=== PATIENT | female | born 1935 | race African-American/Black ===

== ENCOUNTER 2016-10-19 08:49 | Inpatient (IN) ==
[2016-10-19 09:37] LABS: MANUAL DIFF NEEDED? NO
[2016-10-19 09:41] LABS: BASO% 0.2 % (0.0-0.8); EOS# 0.11 X1000 (0.0-0.7); EOS% 0.9 % (0.0-10.0); HEMATOCRIT 43.2 % (37.0-47.0); HEMOGLOBIN 14.2 g/dL (12.0-16.0); LYMPH% 12.4 % (20.5-51.1); MCH 31.1 PG (27-31); MCHC 32.9 g/dL (33-37); MCV 94.5 FL (81-99); MONO# 0.87 X1000 (0.11-0.59); MONO% 7.2 % (1.7-9.3); MPV 9.7 FL (7.4-10.4); NEUT% 79.3 % (42.2-75.2); PLT 453 X1000 (130-400); RBC 4.57 XMIL (4.2-5.4)
--- NOTE | 2016-10-19 09:53 | Diag Imaging Result Doc PS360 ---
KUB ABDOMEN - 10/19/2016 INDICATION: abd pain TECHNIQUE: COMPARISON: None FINDINGS: There is a nonobstructive bowel gas pattern. No free air. There are bilateral prosthetic hips in good position. There is also extensive fusion of the lumbar spine. No definite acute bony lesions. IMPRESSION: No acute disease. Electronically signed by Shan Reyes 10/19/2016 9:51 AM
[2016-10-19 09:58] LABS: URINE SOURCE CATH
[2016-10-19 10:01] LABS: ALBUMIN 4.2 g/dL (3.5-5.0); POTASSIUM 4.4 mmol/L (3.5-5.1); TOTAL BILIRUBIN 0.33 mg/dL (0.20-1.00); TOTAL PROTEIN 7.8 g/dL (6.3-8.3)
[2016-10-19 10:19] LABS: COLOR YELLOW
[2016-10-19 10:20] LABS: TURBIDITY URINE CLEAR (CLEAR)
[2016-10-19 10:23] LABS: BILIRUBIN URINE NEGATIVE (NEGATIVE); BLOOD URINE SMALL (NEGATIVE); PROTEIN URINE 300 mg/dL (NEGATIVE); UROBILINOGEN URINE NORMAL (NORMAL)
[2016-10-19 10:24] LABS: GLUCOSE URINE 300 mg/dL (NEGATIVE); LEUKOCYTES URINE TRACE (NEGATIVE); NITRITE URINE NEGATIVE (NEGATIVE)
[2016-10-19 10:25] LABS: UR EPITHELIAL CELLS <10 /HPF (<10); URINE BACTERIA NEGATIVE /HPF; URINE MICRO REVIEW NEEDED? YES; URINE RBC <10 /HPF (<10); URINE WBC <10 /HPF (<10)
[2016-10-19] MEDS ORDERED: PROTONIX IV ONE (10:55)
[2016-10-19] MEDS ORDERED: SODIUM CHLORIDE 0.9% INJ ONE ×2 (10:55)
[2016-10-19] MEDS ORDERED: PHENERGAN IV ONE (10:55)
--- NOTE | 2016-10-19 11:04 | PROVIDER DOCUMENTATION ---
This chart was entered by Libertad Edgar Scribe, acting as scribe for Luiz Sheikh MD. HPI-Abdominal Pain/GI Problem - General Chief Complaint: Abdominal Pain Stated Complaint: ABDOMINAL PAIN,VOMITING Time Seen by Provider: 10/19/16 09:15 Source: patient, family Allergies/Adverse Reactions: Patient Allergies Allergy/AdvReac Type Severity Reaction Status Date / Time Penicillins Allergy Severe "[facility]16 09[facility]12 [facility] Home Medications: Home Medication List Medication Instructions Recorded Confirmed Last Taken Type Clopidogrel [Plavix] 75 mg PO DAILY 10/16/14 10/19/16 09/03/16 History Furosemide 80 mg PO QAM 10/16/14 10/19/16 09/03/16 History Hydralazine [Apresoline] 50 mg PO DAILY 10/16/14 10/19/16 09/03/16 History Insulin Glulisine [Apidra Solostar] 15 unit SQ DIRECTED 10/16/14 10/19/1609/14 History Levothyroxine [Synthroid] 50 microgm PO DAILY 10/16/14 10/19/16 09/03/16 History Omeprazole 40 mg PO DAILY 10/16/14 10/19/16 10/18/16 19:00 History SIMVAstatin [Zocor] 20 mg PO QHS 10/16/14 10/19/16 09/03/16 History Clonidine [Catapres] 0.3 mg PO DAILY 09/01/16 10/19/16 09/03/16 History Folic Acid/Vit Bcomp,C [Dialyvite 1 each PO DAILY 09/01/16 10/19/16 09/03/16 History Tablet] Gabapentin 300 mg PO DAILY 09/01/16 10/19/16 09/03/16 History - History of Present Illness-ABD Nature of Presenting Problems: Pt presents to the ER with complaint of mild epigastric pain with n/v x 3 days. Pt is currently on dialysis but missed her scheduled tx yesterday due to n/v. Pt denies diarrhea/fever/chills. Has been on zofran with no relief. Had a normal BM this am. Has had PUD in the past. Does make some urine but no complications, dysuria nor flank pain. Abdominal Pain Onset Location: reports: epigastric Pain Radiation: reports: no radiation Quality of Pain: reports: aching, dull Severity in ED: reports: mild Onset/Duration: reports: 3 days ago Timing: reports: still present Associated Symptoms: reports: loss of appetite, nausea, vomiting. denies: cough , diarrhea, fever/chills, genitourinary problems Last BM: this morning Dark Stools Present?: reports: none noticed Rectal Bleeding: reports: none Emesis Description: denies: red blood, coffee grounds Similar Symptoms Previously?: Yes Recently seen or treated by another doctor?: Yes Review of Systems - Adult - REVIEW OF SYSTEMS - ADULT Constitutional: denies: chills, fever Eyes: reports: no symptoms reported Ears, Nose, Mouth & Throat: reports: no symptoms reported Cardiovascular: reports: no symptoms reported Respiratory: denies: cough, shortness of breath Gastrointestinal: reports: nausea, poor appetite, vomiting Genitourinary: reports: other (on dialysis but does make urine). denies: dysuria, hematuria Musculoskeletal: reports: no symptoms reported Integumentary: reports: no symptoms reported Neurological: reports: no symptoms reported Psychiatric: reports: no symptoms reported Endocrine: reports: no symptoms reported Hematologic/Lymphatic: reports: no symptoms reported Allergic/Immunologic: reports: no symptoms reported All Other Systems: Reviewed and Negative Past History - Adult - PAST MEDICAL HISTORY-ADULT Review of Records: reports: Nursing Assessment Review, Medications Reviewed Cardiovascular: reports: HTN, hyperlipidemia, PAD Gastrointestinal: reports: GERD, ulcer Genitourinary: reports: dialysis (MWF), kidney disease Neurological: reports: Seizures/Epilepsy, TIA Endocrine/Immune: reports: Diabetes, thyroid disorder - PRIOR SURGERIES/PROCEDURES Surgical/Procedure History: reports: hysterectomy, orthopedic (extremity) ( right AKA), joint replacement - IMMUNIZATION STATUS Childhood Immunizations: See Nurse Assessment Flu Vaccine: See Nurse Assessment - FAMILY HISTORY Family History: reviewed, not pertinent Physical Exam-General - PHYSICAL EXAM-ADULT Initial Vital Signs Reviewed: Yes - CONSTITUTIONAL General Appearance: appears well, alert, no apparent distress - EYES Eyes: PERRL/EOMI, pink conjunctivae. negative: sunken eyes - HEAD, EARS, NOSE, MOUTH & THROAT HENMT: normocephalic/atraumatic, other (tacky MM's) - NECK Neck: non-tender, full range of motion, other (JVD) - RESPIRATORY Respiratory: chest non-tender, lungs clear, normal breath sounds. negative: rales, rhonchi - CARDIOVASCULAR Cardiovascular: normal peripheral pulses, regular rate, rhythm, no gallop, JVD, diastolic murmur, systolic murmur. negative: gallop/S3 - GASTROINTESTINAL (ABDOMEN) Abdominal Exam: soft, no organomegaly - LYMPHATIC Lymphatic: no adenopathy. negative: striations - MUSCULOSKELETAL Back Exam: normal inspection, no CVA tenderness, no vertebral tenderness Extremity: normal range of motion, non-tender - SKIN Integumentary: normal color, normal turgor, warm/dry - NEUROLOGIC Neurologic: grossly normal - PSYCHIATRIC Psych/Mental Status: normal mood/affect Progress - PLAN OF CARE/RESULTS Progress/Plan/Lab Results: Vital Signs - 8 hr 10/19/16 08:52 Temperature 98.9 F Pulse Rate 112 H Respiratory Rate 20 Blood Pressure 223/99 O2 Sat by Pulse Oximetry 97 Laboratory Results - last 24 hr 10/19/16 09:31 WBC 12.14 H RBC 4.57 Hgb 14.2 Hct 43.2 MCV 94.5 MCH 31.1 H MCHC 32.9 L RDW Std Deviation 16.4 H Plt Count 453 H MPV 9.7 Immature Gran % (Auto) 0.0 Neut % (Auto) 79.3 H Lymph % (Auto) 12.4 L Hartley % (Auto) 7.2 Eos % (Auto) 0.9 Baso % (Auto) 0.2 Immature Gran # (Auto) 0.00 Neut # (Auto) 9.64 H Lymph # (Auto) 1.50 Hartley # (Auto) 0.87 H Eos # (Auto) 0.11 Baso # (Auto) 0.02 Orders Category Date Time Status KUB ABDOMEN [RAD] Stat Exams 10/19/16 09:29 Taken AMYLASE [CHEM] Stat Lab 10/19/16 09:31 Received CBC WITH ELECTRONIC DIFF [HEME] Stat Lab 10/19/16 09:31 Completed COMPREHENSIVE METABOLIC PANEL [CHEM] Stat Lab 10/19/16 09:31 Received LIPASE [CHEM] Stat Lab 10/19/16 09:31 Received URINALYSIS-1 [URINALYSIS] Stat Lab 10/19/16 09:47 Ordered Result Diagrams: 10/19/16 09:31 10/19/16 09:31 - XRAY 1 XRAY Study: Abdomen Impression: Normal (normal bowel gas pattern, no obstruction) - CONSULTS/PCP/HOSPITALIST Notification #1 *Consult/PCP/Hospitalist*: Amira Time Discussed: 10:36 Consult Disposition: Admit Departure - Departure Date of Disposition Decision: 10/19/16 Time of Disposition Decision: 11:00 DIAGNOSIS: AGE (acute gastroenteritis) Disposition: ADMITTED INPATIENT 09 Certified Medical Emergency: Emergent Condition: Good Referrals and Follow-Ups: Greg Zarate MD [Primary Care Provider] - - Critical Care Note This patient required my direct & personal management of CC.: No This chart was documented by the indicated scribe, (Libertad Edagr, Scribe) and accurately reflects the services I performed and decisions made by me, Luiz Sheikh MD, as attested by the provider's signature.
[2016-10-19] MEDS ORDERED: NS 1,000 ML IV ONE (12:44)
[2016-10-19] MEDS ORDERED: HEPARIN IV PRN (13:14)
[2016-10-19] MEDS ORDERED: NS 2,000 ML MISC PRN (13:14)
[2016-10-19] MEDS ORDERED: TIGHT: 0.2 ML/HR MISC PRN (13:14)
[2016-10-19] MEDS ORDERED: NS 2,000 ML ONE (13:18)
[2016-10-19] MEDS ORDERED: HEPARIN ONE (13:18)
--- NOTE | 2016-10-19 15:33 | HISTORY AND PHYSICAL ---
CHIEF COMPLAINT: Nausea and vomiting. HISTORY OF PRESENT ILLNESS: The patient is an 81-year-old black female, followed by Dr. Michelle Zarate and Dr. Gurvinder Aguayo. She was unable to attend her routine hemodialysis yesterday as she was too sick. She has had nausea and vomiting for about 3 days. Not able to the eat or drink well. She has had no diarrhea. Some pain in the epigastric right upper quadrant area. MEDICATIONS: Prior to admission are Zocor 20 mg p.o. at bedtime, omeprazole 40 mg p.o. daily, Synthroid 50 mcg p.o. daily, Apresoline 50 mg p.o. daily, Lasix 80 mg p.o. q.a.m., Plavix 75 mg p.o. daily, Apidra 15 units subcutaneous daily, Catapres 0.3 mg p.o. daily, Dialyvite tablet 1 p.o. daily, Neurontin 300 mg p.o. daily. ALLERGIES: Penicillin. PAST MEDICAL HISTORY: 1. ESRD on hemodialysis on Friday, Wednesdays, and Fridays. 2. Hypertension. 3. History of peptic ulcer disease remote with remote EGD. 4. Insulin-requiring diabetes mellitus. 5. Peripheral arterial disease. 6. Hypothyroidism. 7. Hypercholesterolemia. 8. OA shoulders followed by Dr. Culver. PAST SURGICAL HISTORY: 1. Right AKA. 2. Bilateral hip replacement. 3. Hysterectomy. 4. Fistula placement left forearm. FAMILY HISTORY: Noncontributory. SOCIAL HISTORY: Patient lives in local area. She is currently a nonsmoker, nondrinker. REVIEW OF SYSTEMS: As above. She does have sinus drainage, is bothersome to her. PHYSICAL EXAMINATION: VITAL SIGNS: See chart. Blood pressure elevated. GENERAL: Elderly black female, in mild distress with some abdominal discomfort. SKIN: There is an abrasion on the left lateral chin area fairly wide but noninfected appearing. HEENT: IRMA. EOMI. Sclerae clear. OP mild redness posterior drainage. NECK: No LA, JVD or bruits. CV: RRR with 2/6 murmur. LUNGS: CTA. ABDOMEN: Soft. Active bowel sounds. Mild to moderate tenderness right upper quadrant, minimal epigastric. No mass, organomegaly, rebound, guarding. BREASTS, PELVIC, RECTAL: Deferred. Extremities: Right AKA noted. Decreased pulse in the left lower extremity. No lower extremity edema on the left. Neuro: Cranial nerves 2-12 are intact. Nonfocal. LABS: Show white count of 12, hemoglobin 14.2, hematocrit 43.2, platelets 453,000, neutrophils 79, lymphocytes 12, sodium 139, potassium 4.4, chloride 97, CO2 21, BUN 30, creatinine 5.1, glucose 171, calcium 11.0, AST 24, ALT 9, alkaline phosphatase 57, total protein 7.8, albumin 4.2, amylase 50, lipase 21. Urinalysis 300 of protein and glucose, ketones 20, trace leukocytes. Abdominal x-ray is nonspecific bowel gas pattern. No acute disease. ASSESSMENT: 1. Nausea and vomiting. 2. Right upper quadrant/epigastric abdominal pain. 3. Uncontrolled hypertension. 4. End-stage renal disease on hemodialysis with patient missing her hemodialysis yesterday. 5. Insulin-requiring diabetes mellitus. 6. Hyperlipidemia. 7. History of peptic ulcer disease remote. 8. Peripheral artery disease. 9. Sinus drainage. PLAN: Will admit the patient to telemetry bed. Place her on IV Protonix, sucralfate liquid. Place her on her Catapres and her hydralazine and add nitroglycerin paste. Continue her home medicines except for her Apidra. Will monitor serial Accu-Cheks and give her SSI as required. Will ask Dr. Aguayo to see the patient in consultation for help in regard her dialysis. Will hold her Lasix at this point, give her slow IV hydration. She has not been able to eat or hold down liquids. Will check abdominal ultrasound. cc: MD Jony Benson MD
[2016-10-19] MEDS: CLARITIN PO SCH (16:54)
[2016-10-19] MEDS: APRESOLINE PO SCH (16:54)
[2016-10-19] MEDS: CARAFATE LIQUID PO SCH ×2 (16:54→21:30)
[2016-10-19] MEDS: CATAPRES PO SCH (16:54)
[2016-10-19] MEDS: PROTONIX IV SCH (16:54)
[2016-10-19] MEDS: NITROGLYCERIN TOP SCH ×2 (16:56→21:30)
[2016-10-19] MEDS: SODIUM CHLORIDE 0.9% INJ PRN (16:56)
[2016-10-19] MEDS: HUMULIN R SUBQ SCH ×2 (17:29→21:33)
--- NOTE | 2016-10-19 18:25 | Diag Imaging Result Doc PS360 ---
US ABDOMEN-COMPLETE - 10/19/2016 INDICATION: ruq pain: nausea and vomiting COMPARISON: None FINDINGS: The exam was extremely challenging due to patient noncooperation. The pancreas is obscured. The left kidney is obscured. There are a couple of small benign cysts in the right kidney measuring up to 3 cm. No hydronephrosis. The liver, gallbladder, and spleen are normal. Common bile duct measures 3 mm. Aorta, IVC, and main portal vein are patent. IMPRESSION: No acute disease. Electronically signed by Shan Reyes 10/19/2016 6:23 PM
[2016-10-20] MEDS: CARAFATE LIQUID PO SCH ×4 (04:15→20:16)
[2016-10-20] MEDS: NITROGLYCERIN TOP SCH ×3 (04:15→20:16)
[2016-10-20] MEDS: SYNTHROID PO SCH (06:12)
[2016-10-20] MEDS: HUMULIN R SUBQ SCH ×4 (06:13→21:07)
[2016-10-20] MEDS: CLARITIN PO SCH (08:56)
[2016-10-20] MEDS: NEURONTIN PO SCH (08:56)
[2016-10-20] MEDS: PLAVIX PO SCH (08:56)
[2016-10-20] MEDS: LASIX PO SCH (08:56)
[2016-10-20] MEDS: APRESOLINE PO SCH (08:56)
[2016-10-20] MEDS: CATAPRES PO SCH (08:56)
[2016-10-20] MEDS: PATIENT'S OWN MED PO SCH (09:01)
--- NOTE | 2016-10-20 12:01 | PROGRESS NOTE ---
DATE: 10/20/2016 SUBJECTIVE: Patient states her abdominal pain is improved. She has had no nausea or vomiting. Ate a little breakfast this morning. Overall feeling a little better. Had a little pain after she ate briefly. OBJECTIVE: Vital Signs: Afebrile. Pulse 100, blood pressure 190/91, respiratory rate 19, O2 saturation on room air 97-98%. CV: RRR. Lungs: CTA. Abdomen: Soft. Active bowel sounds. Improved tenderness in the abdomen with very minimal in the epigastrium. No mass or organomegaly. No rebound or guarding. Extremities: Left lower extremity without significant edema. Diagnostic Data: Abdominal ultrasound negative. ASSESSMENT: 1. Nausea and vomiting, resolved. 2. Right upper quadrant/epigastric abdominal pain, improved without gallstones identified. 3. Uncontrolled hypertension. 4. End-stage renal disease, on hemodialysis. 5. Insulin-requiring diabetes mellitus. 6. Hyperlipidemia. 7. Remote peptic ulcer disease. 8. Peripheral arterial disease. 9. Sinus drainage. PLAN: Continue IV Protonix and oral sucralfate. Continue BP medications in the form of Catapres, hydralazine, Lasix, and now we have added nitroglycerin paste. We will add p.r.n. hydralazine. Continue Accu-Cheks and SSI while holding her Apidra until we see if she eats well without my belly pain or vomiting. Dr. Aguayo is following her in regard to her dialysis. We will discontinue her IV fluids and monitor the patient. Consider HIDA scan if recurrent symptoms. cc: MD Jony Benson MD
[2016-10-20] MEDS: SODIUM CHLORIDE 0.9% INJ PRN (12:31)
[2016-10-20] MEDS: PROTONIX IV SCH (12:31)
--- NOTE | 2016-10-20 21:56 | CONSULTATION ---
DATE OF CONSULTATION: 10/20/2016 REASON FOR CONSULTATION: Assistance with management. HISTORY OF PRESENT ILLNESS: Ms. Quispe is an 81-year-old black female who is well known to me. She has diabetes, hypertension, peripheral vascular disease. She has had a right AKA and has also been dealing with ischemia in the left foot. She has end-stage kidney disease and dialyzes typically Friday, Friday and Friday, though she missed her treatment on Friday. She was having problems with nausea and vomiting for about 3 days. Because of this, she did not attend her dialysis. No diarrhea. No epigastric pain. No chills, fever, sweats, night sweats etc. Because of the persistent symptoms she sought attention in the emergency room yesterday. At the time of arrival she was treated symptomatically with improvement in her symptoms. She also had severe hypertension on arrival and this was treated medically with good success. Blood pressure max was 239/122. Dialysis was performed yesterday because she missed her treatment on Friday. Today she is feeling better. She has not had any nausea or vomiting today. She is preparing to eat her dinner which is peas and roast pork. PAST MEDICAL HISTORY: As above. HOME MEDICATIONS: Include simvastatin, omeprazole, levothyroxine, hydralazine, furosemide, clopidogrel, insulin, clonidine, folate, gabapentin. ALLERGIES: Penicillin. SOCIAL HISTORY: She is and lives with her . No alcohol or tobacco. FAMILY HISTORY: Noncontributory. REVIEW OF SYSTEMS: Otherwise noncontributory. PHYSICAL EXAMINATION: Vital Signs: Blood pressure 137/64, heart rate 90, respiration 19, afebrile. Generally: She is a elderly woman in no acute distress. Skin: Warm and dry. HEENT: Conjunctivae are pink. Pupils are equal. Oropharynx is moist. Neck: Neck veins are not visible. Trachea is midline. Heart: Regular with systolic murmur and a gallop. Lungs: Have equal breath sounds. No dullness, crackles, wheezes, etc. Abdomen: Soft, nontender. Bowel sounds present. No organomegaly, masses or bruits. Extremities: Right AKA. Left foot with multiple calluses but no overt ischemic lesions. No clubbing or cyanosis. IMPRESSION: End-stage kidney disease. She was dialyzed yesterday. Euvolemic and blood pressure is well controlled. Electrolytes and acid-base are well controlled. If she is ready for discharge tomorrow she would prefer to go to her routine outpatient dialysis appointment at [facility] instead of dialyzing in the hospital. We will wait and discuss this with Dr. Zarate tomorrow to create disposition plans. No other medical changes. cc: MD Jony Landers MD
[2016-10-21] MEDS: CARAFATE LIQUID PO SCH ×4 (04:06→21:25)
[2016-10-21] MEDS: NITROGLYCERIN TOP SCH ×3 (04:06→21:25)
[2016-10-21] MEDS: SYNTHROID PO SCH (06:19)
[2016-10-21] MEDS: HUMULIN R SUBQ SCH ×4 (06:20→21:25)
[2016-10-21 06:50] LABS: MANUAL DIFF NEEDED? NO
[2016-10-21 06:54] LABS: BASO% 0.2 % (0.0-0.8); EOS# 0.34 X1000 (0.0-0.7); EOS% 4.1 % (0.0-10.0); HEMATOCRIT 40.2 % (37.0-47.0); HEMOGLOBIN 13.2 g/dL (12.0-16.0); LYMPH# 1.99 X1000 (1.2-3.4); LYMPH% 24.1 % (20.5-51.1); MCH 30.6 PG (27-31); MCHC 32.8 g/dL (33-37); MCV 93.3 FL (81-99); MONO# 0.99 X1000 (0.11-0.59); MPV 9.9 FL (7.4-10.4); NEUT% 59.6 % (42.2-75.2); PLT 357 X1000 (130-400); RBC 4.31 XMIL (4.2-5.4)
[2016-10-21 07:27] LABS: ALBUMIN 3.5 g/dL (3.5-5.0); CALCIUM 9.7 mg/dL (8.8-10.2); POTASSIUM 4.1 mmol/L (3.5-5.1); TOTAL BILIRUBIN 0.35 mg/dL (0.20-1.00); TOTAL PROTEIN 7.1 g/dL (6.3-8.3)
[2016-10-21] MEDS: PLAVIX PO SCH (08:18)
[2016-10-21] MEDS: APRESOLINE PO SCH (08:18)
[2016-10-21] MEDS: CLARITIN PO SCH (08:18)
[2016-10-21] MEDS: CATAPRES PO SCH (08:18)
[2016-10-21] MEDS: LASIX PO SCH (08:18)
[2016-10-21] MEDS: NEURONTIN PO SCH (08:19)
[2016-10-21] MEDS: PATIENT'S OWN MED PO SCH (08:22)
[2016-10-21] MEDS ORDERED: HEPARIN IV PRN (08:34)
[2016-10-21] MEDS ORDERED: NS 2,000 ML MISC PRN (08:34)
[2016-10-21] MEDS ORDERED: TIGHT: 0.2 ML/HR MISC PRN (08:34)
[2016-10-21] MEDS: ZOFRAN IV PRN (08:36)
[2016-10-21] MEDS ORDERED: NS 2,000 ML ONE (08:57)
[2016-10-21] MEDS ORDERED: HEPARIN ONE (08:57)
--- NOTE | 2016-10-21 09:20 | PROGRESS NOTE ---
DATE: 10/21/2016 SUBJECTIVE: Ms. Quispe is sitting up in bed. She states that she is feeling much better. She would like to go home to her outpatient dialysis treatment today. OBJECTIVE: Vital Signs: Her most recent vital signs, temperature 98.5 degrees , blood pressure 208/84, heart rate 90, respirations 18. She is on room air. Last recorded saturation 100%. She has had 160 in. She has had 0 recorded out with need for assistance of dialysis. Laboratory Data: Her most recent labs, sodium 133, potassium 4.1, chloride is 95, CO2 20, BUN 45, creatinine 5.6, glucose 148, her anion gap is 18. She has a calcium of 9.7, albumin of 3.5. White count 8.25, hemoglobin 13.2, hematocrit 40.2, with a platelet count of 357 ,000. Her total bilirubin is 0.35, AST 16, ALT 8. Physical Examination: General: This is an 81-year-old, female. She is resting quietly in bed. She is in no acute distress. Skin: Warm and dry. HEENT: Normocephalic, atraumatic. Conjunctiva are pink. She has IRMA. Mucous membranes moist. Neck : Supple. Trachea midline. No JVD. Cardiovascular: She has regular rate and rhythm. Systolic murmur and a gallop are present. Lungs: Clear to auscultation anteriorly. Equal excursion on room air. Abdomen: Soft, nontender. Positive bowel sounds. Genitourinary: Not inspected. Minimal void with dialysis assist. Extremities: Patient has a right AKA. Left foot with multiple calluses and ischemic lesions remain. No clubbing or cyanosis. She has an AV graft to the left upper arm. This has a good palpable thrill. Neurological: Alert and oriented x3. ASSESSMENT AND PLAN: 1. End-stage renal disease. Patient is due for her routine dialysis treatment today. She states that she does not want to have dialysis here in the hospital. Instead, she would like to go to her outpatient dialysis appointment at [facility]. Dr. Aguayo has spoken with Dr. Zarate. We will defer for discharge plans. If patient remains in the hospital, we will plan for dialysis this afternoon. 2. Electrolytes, acid-base balance, and anemia. These all remain stable. 3. Nausea and abdominal pain. This is improved. I would to thank you for allowing us to follow with this patient. Seen, data reviewed, discussed with Edson Page on 10/21/16. I agree with the above assessment and plan of care. rg Dictated by REJI Jaquez for Gurvinder Aguayo MD cc: REJI Jaquez MD Jagan Reddy, MD [facility]ENT[facility]anessa
[2016-10-21] MEDS: SODIUM CHLORIDE 0.9% INJ PRN (13:41)
[2016-10-21] MEDS: PROTONIX IV SCH (13:41)
--- NOTE | 2016-10-21 19:26 | PROGRESS NOTE ---
DATE: 10/21/2016 SUBJECTIVE: Interval history was reviewed. The patient was admitted to the hospital on 10/19/[address] Collier. In brief, she is an 81-year-old female, with nausea, vomiting, upper abdominal pain. She was seen in my office about last week for maintenance care. She had a right leg amputation by Dr. Collier. She also has end-stage kidney disease on dialysis. REVIEW OF SYSTEMS: HEENT: No headache. No dizziness. Cardiopulmonary: No chest pain, shortness of breath. GI: Nausea, vomiting after eating. No constipation. : No history of dysuria. PAST MEDICAL HISTORY: Reviewed. PAST SURGICAL HISTORY: Reviewed. MEDICINES: Reviewed. OBJECTIVE: Vital signs: Tachycardic, blood pressure is stable. HEENT: Within normal limits. Neck: Supple. No lymphadenopathy. No goiter. Chest: Bilateral air entry. No rales, no wheezing. Heart: Sounds are regular. Abdomen: Belly is soft. Tender in the epigastric area. No signs of peritonitis. Extremities: Right above knee amputation noted. Neurologic: No obvious neurological deficits. INVESTIGATIONS: 1. CBC: White cell count 8.2, hematocrit 40, platelets 357,000. SMA7: Sodium 133, potassium 4.1, chloride 95, BUN 45, creatinine 5.6, glucose 145. LFTs were normal. 2. Urine: Microbiology not done. 3. Ultrasound of the abdomen: No acute disease. Benign cyst in the right kidney. No gallstones. 4. Abdomen x-ray: Bilateral hip replacement. Scoliosis. Nonobstructive bowel disease. ASSESSMENT AND PLAN: 1. Upper abdominal pain associated with meals. Ultrasound is negative. Rule out acalculous cholecystitis. We will schedule for a HIDA scan. If it is negative, consider esophagogastroduodenoscopy. 2. End-stage kidney disease on dialysis. Continue the dialysis today. 3. Right above-knee amputation. Stable. 4. Bilateral hip replacement. Stable. 5. Hypothyroidism. On Synthroid. 6. Continue GI prophylaxis with IV Protonix and Carafate. 7. Hypertension. Continue on hydralazine and clonidine. 8. Peripheral vascular disease. On Plavix, status post above-knee amputation. Discussed with Dr. Aguayo and the patient plan of care. LEVEL OF DOCUMENTATION: 35 minutes with a detailed report. cc: Jony Zarate MD MTDD
[2016-10-21] MEDS: DILAUDID IV PRN (22:29)
[2016-10-22] MEDS: CARAFATE LIQUID PO SCH ×5 (04:07→20:33)
[2016-10-22] MEDS: NITROGLYCERIN TOP SCH ×3 (04:45→20:33)
[2016-10-22] MEDS: APRESOLINE IV PRN (05:50)
[2016-10-22] MEDS: HUMULIN R SUBQ SCH ×4 (06:04→20:43)
[2016-10-22] MEDS: SYNTHROID PO SCH (06:04)
[2016-10-22] MEDS: CLARITIN PO SCH (08:59)
[2016-10-22] MEDS: APRESOLINE PO SCH (08:59)
[2016-10-22] MEDS: PLAVIX PO SCH (08:59)
[2016-10-22] MEDS: NEURONTIN PO SCH (08:59)
[2016-10-22] MEDS: LASIX PO SCH (08:59)
[2016-10-22] MEDS: CATAPRES PO SCH (09:00)
[2016-10-22] MEDS: PATIENT'S OWN MED PO SCH (09:09)
[2016-10-22] MEDS: PROTONIX IV SCH (12:07)
[2016-10-22] MEDS: SODIUM CHLORIDE 0.9% INJ PRN (12:07)
[2016-10-22] MEDS: DILAUDID IV PRN ×2 (12:08→22:42)
--- NOTE | 2016-10-22 15:19 | PROGRESS NOTE ---
DATE: 10/22/2016 SUBJECTIVE: Ms. Quispe is resting quietly in bed. She is waiting for her breakfast. She states that she is hungry. She denies chest pain or increased work of breathing. She does continue to have some type of a midepigastric discomfort. She is NPO. OBJECTIVE: Labs have not been drawn. We will draw these in the a.m. prior to dialysis. Last potassium 4.1, with a hemoglobin of 13.2. VITAL SIGNS: Temperature 97.6 degrees, blood pressure 209/77, heart rate 86, respirations 14. She is on room air. Last recorded saturation 100%. She has had 380 in with 3 L off on dialysis. PHYSICAL EXAMINATION: General: This is an 81-year-old female. She is currently resting in bed. She is in no acute distress. Skin: Warm and dry. HEENT: Normocephalic, atraumatic. Conjunctiva is pink. She has IRMA. Mucous membranes moist. Neck : Supple. Trachea midline. No JVD. Cardiovascular: Regular rate and rhythm. She is without murmur or gallop. Lungs: Clear to auscultation anteriorly. Equal excursion. She is on room air. Abdomen: Soft, nontender to palpation though she does have a chronic mid epigastric pain that she can point to on her abdomen. Genitourinary: Not inspected. Minimal void with dialysis assist. Neurological: She is alert and oriented x3. ASSESSMENT AND PLAN: 1. End-stage renal disease. Patient is due for her routine dialysis treatment in the a.m. We have discussed that if she remains in the hospital we will plan for dialysis in the a.m. Otherwise she is to go to her outpatient prescription dialysis at the outpatient [facility]. 2. Electrolytes and acid-base balance and anemia. These have all remained stable. 3. Abdominal pain. Patient has a workup today. I would to thank you for allowing us to follow with this patient. Seen, data reviewed, discussed with Edson Page on 10/22/16. I agree with the above assessment and plan of care. rg Dictated by REJI Jaquez for Gurvinder Aguayo MD cc: REJI Jaquez MD Jagan Reddy, MD MTDD
--- NOTE | 2016-10-22 19:16 | PROGRESS NOTE ---
DATE: 10/22/2016 SUBJECT: Patient is here complains of epigastric pain while eating, NPO, waiting to go for HIDA scan as well as Dr. Shipman consult. REVIEW OF SYSTEMS: Upper abdominal pain with eating epigastric area. And otherwise review of systems are none reported. PHYSICAL EXAMINATION: Vital signs: Afebrile. Pulse is 88, blood pressure is 130/61. HEENT: Within normal limits. Neck: Supple. No lymphadenopathy. Chest: Clear. Heart: Sounds are regular. Belly: Is soft, slightly tender epigastric area. Extremities: Right above-knee amputation otherwise stable. INVESTIGATIONS: None reported. Blood sugars running well. ASSESSMENT AND PLAN: 1. Upper abdominal pain rule out acalculous cholecystitis. Follow up on HIDA, if HIDA scan is negative consider EGD. 2. Type 2 diabetes, hypertension, continue present therapy. 3. End-stage kidney disease on dialysis tomorrow. Level of documentation is 15 minutes. cc: Jony Zarate MD
[2016-10-22] MEDS: MIRALAX PO SCH (20:33)
[2016-10-22] MEDS: DULCOLAX PR SCH (20:33)
[2016-10-23] MEDS: CARAFATE LIQUID PO SCH ×4 (01:14→20:17)
[2016-10-23] MEDS: APRESOLINE IV PRN (04:28)
[2016-10-23] MEDS: NITROGLYCERIN TOP SCH ×3 (04:28→20:17)
[2016-10-23] MEDS: SYNTHROID PO SCH (06:17)
[2016-10-23] MEDS: HUMULIN R SUBQ SCH ×4 (06:18→21:19)
[2016-10-23] MEDS ORDERED: TIGHT: 0.2 ML/HR MISC PRN (07:06)
[2016-10-23] MEDS ORDERED: HEPARIN IV PRN (07:06)
[2016-10-23] MEDS ORDERED: NS 2,000 ML MISC PRN (07:06)
[2016-10-23] MEDS ORDERED: NS 2,000 ML ONE (07:07)
[2016-10-23] MEDS ORDERED: HEPARIN ONE (07:07)
[2016-10-23 07:14] LABS: ALBUMIN 3.5 g/dL (3.5-5.0); CALCIUM 9.5 mg/dL (8.8-10.2); POTASSIUM 4.5 mmol/L (3.5-5.1)
--- NOTE | 2016-10-23 07:27 | Diag Imaging Result Doc PS360 ---
EXAM: HIDA SCAN W/ EJECTION FRACTION HISTORY: abdominal bloating TECHNIQUE: 5.9 mCi Choletec administered COMPARISON: None. FINDINGS: There is prompt uptake of radiopharmaceutical within the liver. Normal filling of the gallbladder with normal emptying into the small bowel. Ensure was given to determine the gallbladder ejection fraction. This is calculated to be only 27% at 60 minutes. IMPRESSION: Abnormal exam with a slightly below normal gallbladder ejection fraction. Electronically signed by Ketan Noland 10/23/2016 7:25 AM
--- NOTE | 2016-10-23 08:52 | PROGRESS NOTE ---
DATE: 10/23/2016 TIME SEEN: 0755. SUBJECTIVE: Ms. Quispe is resting quietly in bed. She is in no acute distress. Her skin is warm and dry. She denies chest pain or increased work of breathing. OBJECTIVE: Vital signs: Her most recent vital signs, temperature 98.2 degrees , blood pressure 120/60, heart rate 88, respirations 16. She is on room air. Saturation of 100% . She has had 600 in. She has had 0 recorded out with need for dialysis. Labs: Sodium 133, potassium 4.5, chloride 90, CO2 25, BUN 51, creatinine 5.1, glucose 107, anion gap 18, calcium 9.5, phosphorus 4.8, albumin 3.5. Previous hemoglobin 13.2 on the . PHYSICAL EXAMINATION: General: This is an 81-year-old female. She is resting quietly in bed. She is in no acute distress. Skin: Warm and dry. HEENT: Normocephalic, atraumatic. Conjunctivae pink. She has IRMA. Mucous membranes moist. Neck: Supple. Trachea midline. No JVD. Cardiovascular: Regular rate and rhythm. She has a soft systolic murmur. No gallop appreciated. Lungs: Clear to auscultation anteriorly. Equal excursion. Abdomen: Soft, nontender. Positive bowel sounds. Patient states that her pain and midepigastric area is improving. Genitourinary: Not inspected. Minimal void with dialysis assist. Extremities: Have no edema. No clubbing or cyanosis. Neurological: Alert and oriented x3. ASSESSMENT AND PLAN: 1. End-stage renal disease. Patient is due for her routine dialysis treatment today. She is scheduled to be on a 2 K bath, 3.5 hours. We will pull patient to her dry weight. 2. Electrolytes, acid-base balance, and anemia. These are all at target. 3. Abdominal pain. This is being followed by GI and primary care. I would like to thank you for allowing us to follow with this patient. Seen, data reviewed, discussed with Edson Page on 10/23/16. I agree with the above assessment and plan of care. rg Dictated by REJI Jaquez for Gurvinder Aguayo MD cc: REJI Jaquez MD Jagan Reddy MD [facility]
[2016-10-23] MEDS ORDERED: DILAUDID ONE (10:42)
[2016-10-23] MEDS: DILAUDID IV PRN ×3 (10:46→22:55)
[2016-10-23] MEDS: CATAPRES PO SCH (12:44)
[2016-10-23] MEDS: PLAVIX PO SCH (12:44)
[2016-10-23] MEDS: CLARITIN PO SCH (12:44)
[2016-10-23] MEDS: LASIX PO SCH (12:44)
[2016-10-23] MEDS: NEURONTIN PO SCH (12:44)
[2016-10-23] MEDS: APRESOLINE PO SCH (12:44)
[2016-10-23] MEDS: SODIUM CHLORIDE 0.9% INJ PRN (12:45)
[2016-10-23] MEDS: PROTONIX IV SCH (12:45)
[2016-10-23] MEDS: MIRALAX PO SCH ×2 (13:00→20:17)
[2016-10-23] MEDS: PATIENT'S OWN MED PO SCH (13:00)
--- NOTE | 2016-10-23 16:40 | CONSULTATION ---
DATE OF CONSULTATION: 10/23/2016 REFERRING PHYSICIAN: Michelle Zarate MD PRIMARY CARE DOCTOR: Michelle Zarate MD REASON FOR CONSULT: Abdominal pain in the epigastrium region, nausea. HISTORY OF PRESENT ILLNESS: Ms. Quispe is an 81-year-old female who was admitted on 10/20/2016 with symptoms of epigastric pain, nausea, vomiting for the last 3 days. She also complains of decreased p.o. intake and dehydration. She has a history of intermittent constipation at home. She has had a long history of diabetes. She has a history of hemodialysis. Since being in the hospital. She has had HIDA scan which showed ejection and 27% at 60 minutes. She had an abdominal ultrasound done on 10/20/2016 which showed no acute disease. She was observed to have a small benign cyst in the right kidney and a gallbladder measuring 3 mm. She has had hemodialysis today. She denies any vomiting or passing blood in the stools. PAST MEDICAL HISTORY: 1. Diabetes. 2. Endstage renal disease on hemodialysis Friday, Friday, Friday. 3. Hypertension. 4. History of peptic ulcer disease, with remote EGD. 5. Peripheral arterial disease. 6. Hypothyroidism. 7. Hyperlipidemia. 8. Osteoarthritis. PAST SURGERY HISTORY: 1. Right above knee amputation. 2. Bilateral hip replacement. 3. Hysterectomy. 4. Fistula placement in left forearm. FAMILY HISTORY: Noncontributory. SOCIAL HISTORY: She lives in local area. She currently a nonsmoker and nondrinker. REVIEW OF SYSTEMS: Denies any fevers, rigors, chills, chest pain, shortness of breath, or dyspnea at rest. Denies any genitourinary complaints. She has a history of intermittent nausea, decreased p.o. intake and epigastric and right upper quadrant pain. She does complain of intermittent constipation. Her last bowel movement was 3 days ago. She has not moved her bowels since this hospitalization. Her last one was about 5 days ago. She denies a history of arthritis. She has limited movement because of right [id number] amputation attributed to her diabetes. She denies any neurologic complaints. MEDICATIONS IN HOSPITAL: Reviewed in the [facility]. PHYSICAL EXAMINATION: Vital signs: Temperature 98.7 degrees, pulse of 102, respiratory rate 18, blood pressure 170/89, saturating 99% on room air. Body weight of 170 pounds, 10 ounces, BMI 26.9 kg/m2. General: Moderately built, moderately nourished lying in bed, in no acute distress. HEENT: No pallor. No icterus. Pupils equal, react to light. Neck: Supple. Chest: Decreased. Cardiac: Regular rhythm. No murmur. Abdomen: Soft, mild discomfort in the epigastric region. No rebound, no guarding. Bowel sounds are hypoactive. Extremities: No cyanosis, clubbing. Status post right above-knee amputation. Neurologic: She is alert, awake, oriented. LABORATORY: Hemoglobin and hematocrit is 13.2 and 40.2, white count of 8.2, platelet count of 357,000. Sodium 130, potassium 4.1, chloride 90, bicarb 25, anion gap of 18, BUN of 3, creatinine 5.1, glucose of 107, calcium 9.5, phosphorus 4.8, AST 16, ALT 8. Alkaline phosphatase 47, total protein 7.1, albumin of 3.5, amylase of 71, lipase of 48. Urinalysis showing positive protein, positive glucose, positive ketones, small blood and trace leukocytes. DIAGNOSTICS: 1. Ultrasound and HIDA scan as described in HPI. 2. Abdominal x-ray on admission showing no acute disease. IMPRESSION AND PLAN: 1. Epigastric and right upper quadrant pain along with nausea, decreased p.o. intake. 2. Constipation. 3. Diabetes. 4. Endstage renal disease on hemodialysis. RECOMMENDATIONS: 1. We will keep the patient on Protonix once daily. 2. We will schedule patient for EGD tomorrow under anesthesia. The risks, benefits, indications, alternatives, discussed with the patient. 3. We will start the patient on Dulcolax suppository at bedtime. We will also start her on MiraLAX 17 g p.o. b.i.d. 4. The patient has been on Plavix which we will hold for tomorrow. We will start her on Carafate 1 g every 6 hours for nausea. The risk of bleeding associated with any kind of intervention is slightly higher as the patient has been on Plavix. I did address that concern with the patient also. cc: MD Jony Cristina MD Reginald D. Gladish, MD MTDD
[2016-10-23] MEDS: ZOFRAN IV PRN (18:14)
--- NOTE | 2016-10-23 19:26 | PROGRESS NOTE ---
DATE: 10/23/2016 SUBJECTIVE: The patient continues to have upper abdominal discomfort. Not bad. HIDA scan was done. It showed 27%. She is seen in the dialysis clinic. REVIEW OF SYSTEMS: Upper abdominal pain. OBJECTIVE: Vital signs: Temperature is 97 degrees, pulse is 86, blood pressure is 140/60. HEENT: Within normal limits. Neck: Supple. Chest: Clear. Heart: Sounds are regular. Abdomen: Belly is soft. No signs of peritonitis. INVESTIGATIONS: HIDA scan positive 27%. ASSESSMENT AND PLAN: 1. Upper abdominal pain. Acalculous cholecystitis. Rule out peptic ulcer disease. I discussed with Dr. Shipman. He is going to see the patient and scheduled for EGD in the morning. 2. End-stage kidney disease on dialysis. Continue present medical therapy. LEVEL OF DOCUMENTATION: 25 minutes. cc: Jony Zarate MD
[2016-10-23] MEDS: DULCOLAX PR SCH (20:17)
[2016-10-24] MEDS: CARAFATE LIQUID PO SCH ×4 (04:41→23:31)
[2016-10-24] MEDS: NITROGLYCERIN TOP SCH ×3 (04:41→23:32)
[2016-10-24] MEDS: HUMULIN R SUBQ SCH ×3 (06:19→16:08)
[2016-10-24] MEDS: SYNTHROID PO SCH (06:19)
[2016-10-24] MEDS ORDERED: XYLOCAINE-MPF 2% ONE (06:24)
[2016-10-24] MEDS ORDERED: DIPRIVAN 1% ONE (06:25)
[2016-10-24] MEDS ORDERED: LABETALOL ONE (09:09)
[2016-10-24] MEDS ORDERED: NITROGLYCERIN ONE (09:39)
[2016-10-24] MEDS: CLARITIN PO SCH (10:21)
[2016-10-24] MEDS: NEURONTIN PO SCH (10:21)
[2016-10-24] MEDS: LASIX PO SCH (10:21)
[2016-10-24] MEDS: CATAPRES PO SCH (10:22)
[2016-10-24] MEDS: DILAUDID IV PRN ×3 (10:22→23:29)
[2016-10-24] MEDS: MIRALAX PO SCH ×2 (10:22→23:29)
[2016-10-24] MEDS: APRESOLINE PO SCH (10:22)
[2016-10-24] MEDS: PATIENT'S OWN MED PO SCH (10:23)
[2016-10-24] MEDS: MYCOSTATIN SUSP PO SCH ×3 (10:23→23:30)
[2016-10-24] MEDS: SODIUM CHLORIDE 0.9% INJ PRN (12:05)
[2016-10-24] MEDS: PROTONIX IV SCH (12:05)
--- NOTE | 2016-10-24 13:27 | PROGRESS NOTE ---
DATE: 10/24/2016 SUBJECTIVE: Ms. Quispe is resting quietly. She has just been placed in a chair. She has no complaints. She is to go down for an evaluation of her abdominal pain. PHYSICAL EXAMINATION: Vital Signs: Temperature 98 degrees, blood pressure 196/ 67, heart rate 87, respirations are 16. She is on room air. Last recorded saturation 98%. She has had 480 in. She had 1 L removed on dialysis. Her labs will be due tomorrow prior to her dialysis treatment. Her last potassium was 4.5, last hemoglobin 13.2 on the . PHYSICAL EXAMINATION: This is an 81-year-old female. She is resting quietly in a chair. She is in no acute distress.Skin: Warm and dry. HEENT: Normocephalic, atraumatic. Conjunctiva is pink. She has IRMA. Mucous membranes are moist. Neck: Supple. Trachea midline. No JVD. Cardiovascular: Regular rate and rhythm. She has a soft systolic murmur. No gallop. Lungs: Clear to auscultation anteriorly. Equal excursion on room air. Abdomen : Soft, nontender. Positive bowel sounds. Genitourinary: Not inspected. Patient has minimal void with dialysis assist. Extremities: Have no edema. No clubbing or cyanosis. Neurological: She is alert and oriented x3. ASSESSMENT AND PLAN: 1. End-stage renal disease. Patient is due for her routine dialysis treatment in the a.m. Otherwise no indications for intervention today. 2. Electrolytes acid-base balance and anemia. These have all been stable. No recent labs. Labs pending for the a.m. prior to dialysis treatment. 3. Abdominal pain. This continues to be evaluated and worked up by primary care team. I would to thank you for allowing us to follow with this patient. Seen, data reviewed, discussed with Edson Page on 10/24/16. I agree with the above assessment and plan of care. rg Dictated by REJI Jaquez for Gurvinder Aguayo MD cc: REJI Jaquez MD Jagan Reddy, MD [facility]ITALVan[facility]
--- NOTE | 2016-10-24 22:06 | PROGRESS NOTE ---
DATE: 10/24/2016 SUBJECTIVE: The patient was seen by Dr. Shipman. Planning to do the EGD in the morning. Complains of upper abdominal pain. No dysphagia, no bleeding per rectum. REVIEW OF SYSTEMS: None reported. Had dialysis yesterday. PHYSICAL EXAMINATION: Vital signs: Afebrile. Vitals are stable. HEENT: Within normal limits. Neck: Supple. No lymphadenopathy. Chest: Clear to auscultation. Heart: Sounds are regular. Abdomen: Belly is soft. No signs of peritonitis. HIDA scan is borderline positive. ASSESSMENT AND PLAN: 1. Upper abdominal pain. Etiology to be determined. Waiting for EGD. Based on that, further recommendations will be followed. 2. Nausea, vomiting. Gallbladder workup, ultrasound is negative. Borderline positive for HIDA scan. 3. End-stage kidney disease on hemodialysis tomorrow. Based on the EGD, further recommendations will be followed. LEVEL OF DOCUMENTATION: 15 minutes. cc: Jony Zarate MD
[2016-10-24] MEDS: DULCOLAX PR SCH (23:32)
--- NOTE | 2016-10-25 03:41 | OPERATIVE NOTE ---
PROCEDURE DATE: 10/24/2016 REQUESTING PHYSICIAN: Jony Zarate MD PROCEDURE: Esophagogastroduodenoscopy. PREOPERATIVE DIAGNOSES: 1. Epigastric and right upper quadrant pain going on for a week. 2. Nausea. 3. End-stage renal disease on hemodialysis Friday, Friday, Friday. 4. Constipation. 5. Slightly below normal gallbladder ejection fraction of 27%. POSTOPERATIVE DIAGNOSES: 1. Candidal esophagitis in mid esophagus mild degree. 2. Z-line visualized at 40 cm, slightly irregular. 3. Evidence of hiatal hernia 1-2 cm sliding type. 4. Erosive gastritis in the body and antrum. 5. Normal fundus, cardia, incisura. 6. Normal duodenal bulb and second portion duodenum. ESTIMATED BLOOD LOSS: None. COMPLICATIONS: None. ANESTHESIA: Monitored anesthesia care per the anesthesiologist. SPECIMEN: None. Biopsies were not obtained as the patient was on Plavix DESCRIPTION OF PROCEDURE: After informed consent, the patient was explained the risks, benefits, indications, alternatives of the procedure. The patient was prepared for EGD. The risks included infection, bleeding, pain, trauma to the surrounding structures, perforation explained to the patient among others, and she acknowledged understanding and agreed to proceed. The patient was brought to the OR turned in the left lateral position. A bite block was placed in patient's mouth. After adequate monitored anesthesia care the upper scope introduced over the oral vestibule and advanced all the way to the second portion of the esophagus normal in the proximal 3rd. The middle 3rd showed evidence of whitish exudate adherent to the mucosa, which could be easily removed or scraped away suggesting Yesenia esophagitis. The distal esophagus had mild degree of scattered candidiasis. The Z-line visualized at 40 cm slightly irregular. There was evidence of small 1-2 cm sliding hiatal hernia. Scope was advanced and showed evidence of erythema, friability, erosions in the body and antrum suggesting erosive gastritis. We could not biopsy the area because the patient being on Plavix. Retroflexion in the stomach revealed normal fundus, cardia, incisura. There was no evidence of pyloric stenosis. No evidence of any retained gastric contents noted. No evidence of any ulcers noted. The scope was advanced into the duodenum and it showed normal duodenal bulb and second portion duodenum. The air was aspirated and the scope was withdrawn. The patient tolerated the procedure and currently monitored in the OR in stable condition. RECOMMENDATIONS: 1. The patient will be on Protonix once daily. 2. The patient will be on Carafate 1 g every 6 hours for 4 weeks. 3. The patient will continue MiraLAX 17 g twice daily and Dulcolax 10 mg per rectal at bedtime. 4. We will start on GI soft diet. 5. We will start on nystatin swish and swallow 5 mL every 6 hours for 2 weeks. 6. On discharge, patient's Protonix can be continued for 3 months. We will avoid any NSAIDs. We will check stool for H. pylori antigen. Patient will follow gastroesophageal reflux lifestyle changes. 7. If the H. pylori stool antigen is positive then she will need H. pylori treatment. 8. If the patient's symptoms continue then a surgical consultation may be appropriate to evaluate the gallbladder pathology. cc: MD Jony Cristina MD MTDD
[2016-10-25] MEDS: CARAFATE LIQUID PO SCH ×4 (04:20→21:23)
[2016-10-25] MEDS: MYCOSTATIN SUSP PO SCH ×4 (04:21→23:11)
[2016-10-25] MEDS: HUMULIN R SUBQ SCH ×5 (06:25→23:56)
[2016-10-25] MEDS: NITROGLYCERIN TOP SCH ×3 (06:45→21:27)
[2016-10-25] MEDS: DILAUDID IV PRN ×4 (06:45→23:03)
[2016-10-25] MEDS: SYNTHROID PO SCH (06:45)
[2016-10-25] MEDS ORDERED: HEPARIN IV PRN (06:54)
[2016-10-25] MEDS ORDERED: TIGHT: 0.2 ML/HR MISC PRN (06:54)
[2016-10-25] MEDS ORDERED: NS 2,000 ML MISC PRN (06:54)
[2016-10-25] MEDS: APRESOLINE IV PRN (07:59)
[2016-10-25 08:00] LABS: ALBUMIN 3.7 g/dL (3.5-5.0); CALCIUM 9.1 mg/dL (8.8-10.2)
[2016-10-25 08:05] LABS: POTASSIUM 5.6 mmol/L (3.5-5.1)
--- NOTE | 2016-10-25 09:40 | EKG Report ---
Test Performed on : 10/25/2016 09:23:36 AM Test Reason : chest pain Blood Pressure : / mmHG Vent. Rate : 079 BPM Atrial Rate : 079 BPM P-R Int : 146 ms QRS Dur : 084 ms QT Int : 456 ms P-R-T Axes : 041 005 077 degrees QTc Int : 522 ms Normal sinus rhythm. Voltage criteria for left ventricular hypertrophy Nonspecific ST and T wave abnormality Prolonged QT Abnormal ECG When compared with ECG of 01-SEP-2016 16:43, [place] interval has decreased Confirmed by Max Macdonald MD ([id number]) on 10/29/2016 6:01:48 AM
[2016-10-25] MEDS: MIRALAX PO SCH ×2 (10:08→21:24)
[2016-10-25] MEDS: PATIENT'S OWN MED PO SCH (10:09)
--- NOTE | 2016-10-25 10:41 | PROGRESS NOTE ---
DATE: 10/25/2016 SUBJECTIVE: She is having pain in her foot and she took a p.r.n. injection this morning of Dilaudid. Consequently her blood pressure is a bit low now. Pain is still present but improved. OBJECTIVE: Vital Signs: Blood pressure 96/67, heart rate 83 and afebrile. Generally: She is in no acute distress. Skin: Warm and dry. Conjunctivae are pink. Neck: Neck veins are not distended. Heart: Regular with a gallop. Soft murmur. Lungs: Have equal breath sounds. No crackles. Abdomen: Soft, nontender. Bowel sounds present. Extremities: Have no edema, clubbing, or cyanosis. IMPRESSION: 1. End-stage kidney disease. Continue her routine hemodialysis. 2. Electrolytes: Moderate hyperkalemia that will be addressed with dialysis. 3. Hypertension. It was worse this morning related to acute pain but much lower now. No changes in her medications. cc: MD Jony Landers MD
--- NOTE | 2016-10-25 11:30 | PROGRESS NOTE ---
DATE: 10/25/2016 INTERVAL HISTORY: The patient had EGD done by Dr. Shipman. Findings were noted. The patient was started on Mycostatin suspension 5 mL q.6 along with Protonix and Carafate. Patient was seen during dialysis. Complains of a lot of pain. Does not look good. She is not eating this morning. She is nauseous. EKG was obtained. Normal sinus, nothing acute for ischemia. REVIEW OF SYSTEMS: Upper abdominal pain and nausea. PHYSICAL EXAMINATION: Vital Signs: Afebrile. Blood pressure is high. HEENT: Within normal limits. Chest: Clear. Heart: Sounds are regular with a 2 x 6 systolic murmur in aortic valve area. Belly is soft. No signs of peritonitis. Tender. Extremities: Right leg was amputated. No focal deficits. INVESTIGATIONS: Sodium 134, potassium 5.6. BUN 48, creatinine 5.2. Initial LFTs were normal. EKG: Normal sinus, nothing acute. EGD findings, hiatal hernia. There is a gastritis and candidal esophagitis. ASSESSMENT AND PLAN: 1. Upper abdominal pain. EGD finding no ulcers. Continue on PPI and nystatin. 2. Suspicious for gallbladder disease. EKG did not show any evidence of ischemia. Follow up on cardiac enzymes and LFTs. Hold off discharge. Consult with the surgical associates for possible gallbladder disease. 3. End-stage kidney disease on dialysis. LEVEL OF DOCUMENTATION: 25 minutes. cc: Jony Zarate MD
[2016-10-25] MEDS: APRESOLINE PO SCH (12:03)
[2016-10-25] MEDS: NEURONTIN PO SCH (12:03)
[2016-10-25] MEDS: CATAPRES PO SCH (12:04)
[2016-10-25] MEDS: PLAVIX PO SCH (12:04)
[2016-10-25] MEDS: LASIX PO SCH (12:04)
[2016-10-25] MEDS: CLARITIN PO SCH (12:04)
[2016-10-25] MEDS: SODIUM CHLORIDE 0.9% INJ PRN (14:01)
[2016-10-25] MEDS: PROTONIX IV SCH (14:01)
--- NOTE | 2016-10-25 16:22 | CONSULTATION ---
DATE OF CONSULTATION: 10/25/2016 REASON FOR CONSULTATION: Abdominal pain and gallbladder. HISTORY OF PRESENT ILLNESS: This is an 81-year-old female who began experiencing a burning epigastric pain 2 days ago. It has been progressive in nature. It is not worsened with eating. She did have associated nausea and vomiting. No fever, chills, or diarrhea. She has been constipated. Her last bowel movement was about 1 week ago. PAST MEDICAL HISTORY: 1. End-stage renal disease on hemodialysis Friday, Friday and Friday. 2. Hypertension. 3. History of peptic ulcer disease. 4. Insulin-dependent diabetes mellitus. 5. Peripheral arterial disease. 6. Hypothyroidism. 7. Hypercholesterolemia. 8. Osteoarthritis. HOME MEDICATIONS: Zocor. Omeprazole. Synthroid. Apresoline. Lasix. Plavix. Apidra. Catapres. Dialyvite. Neurontin. CURRENT MEDICATIONS: Dulcolax. Catapres. Plavix. Lasix. Neurontin. Hydralazine. Synthroid. Claritin. Nitroglycerin. Nystatin. MiraLAX. Folic acid. Protonix. Carafate. SOCIAL HISTORY: She is a nonsmoker and nondrinker. FAMILY HISTORY: Reviewed and noncontributory. PAST SURGICAL HISTORY: 1. Right above-knee amputation. 2. Bilateral hip replacement. 3. Hysterectomy. 4. Left forearm AV fistula. 5. Bilateral eye surgery. 6. Back surgery. REVIEW OF SYSTEMS: Ten systems reviewed and negative except as noted above. PHYSICAL EXAMINATION: Vital Signs: Temperature 98 degrees, pulse 88, respirations 17, blood pressure 216/75 at 7:52 this morning. Her blood pressure was 144/59 last night. General: She is an elderly female, in no distress who looks her stated age. HEENT: Normocephalic, atraumatic. Extraocular muscles intact. Pupils equal, round, reactive to light. Sclerae anicteric. Neck: Supple. No thyromegaly. CARDIOVASCULAR: Regular rate and rhythm. Respiratory: Bilateral breath sounds. No work of breathing. Gastrointestinal: Soft, nondistended. No organomegaly or mass. No hernias. She is tender in the right upper quadrant and epigastrium. Extremities: No clubbing, cyanosis, or edema. Skin: Warm and dry. No rash. Musculoskeletal: Moves all extremities equally and well. LABORATORY: White blood cell count 8, hemoglobin 13, platelet count 357,000. Sodium 134, potassium 5.6, chloride 90, CO2 26, BUN 48, creatinine 5.2, glucose 133. Amylase 71, lipase 48, AST 16, ALT 18, alkaline phosphatase 47, total bilirubin 0.3. IMAGING: Abdominal ultrasound on 10/19/2016 shows no acute disease. HIDA scan on 10/22/2014 shows depressed gallbladder ejection fraction at 27%. PROCEDURES: An EGD on 10/24/2016 revealed some candidal esophagitis and a small sliding hiatal hernia. There was some erosive gastritis, but no ulcers. ASSESSMENT/PLAN: An 81-year-old female with right upper quadrant and epigastric pain and tenderness with a depressed gallbladder ejection fraction. This likely represents symptomatic biliary dyskinesia. I have recommended her laparoscopic cholecystectomy. We discussed the risks, benefits, and alternatives, including bleeding, infection, injury to surrounding organs, such as the intestines or bile duct, incisional hernia, pneumonia, DVT and other imponderables. She understands and agrees to proceed. cc: MD Jony Vazquez MD
[2016-10-25] MEDS: DULCOLAX PR SCH (21:30)
[2016-10-25] MEDS: ZOFRAN IV PRN (22:50)
[2016-10-26] MEDS: CARAFATE LIQUID PO SCH ×4 (01:25→22:45)
[2016-10-26] MEDS: ZOFRAN IV PRN (03:11)
[2016-10-26] MEDS: DILAUDID IV PRN ×2 (03:11→10:51)
[2016-10-26] MEDS: MYCOSTATIN SUSP PO SCH ×3 (05:08→16:12)
[2016-10-26] MEDS: NITROGLYCERIN TOP SCH ×3 (05:09→23:05)
[2016-10-26] MEDS: HUMULIN R SUBQ SCH ×3 (07:11→16:28)
[2016-10-26] MEDS: SYNTHROID PO SCH (07:16)
[2016-10-26] MEDS ORDERED: SODIUM CHLORIDE 0.9% 10 ML ONE (07:36)
[2016-10-26] MEDS ORDERED: QUELICIN (DOSE) ONE (07:36)
[2016-10-26] MEDS ORDERED: XYLOCAINE-MPF 2% ONE (07:36)
[2016-10-26] MEDS ORDERED: EPHEDRINE ONE (07:36)
[2016-10-26] MEDS ORDERED: FENTANYL ONE (07:43)
[2016-10-26] MEDS ORDERED: SENSORCAINE 0.25%/EPI 1:200,000 ONE (07:43)
[2016-10-26] MEDS ORDERED: LEVAQUIN 500 MG/D5W 500 MG/100 ML IVPB ONE (07:44)
[2016-10-26] MEDS ORDERED: LR 1,000 ML ONE (07:44)
[2016-10-26] MEDS ORDERED: SODIUM CHLORIDE 0.9% ONE (07:44)
[2016-10-26] MEDS ORDERED: DIPRIVAN 1% ONE (07:46)
[2016-10-26] MEDS ORDERED: XYLOCAINE 2% JELLY ONE (07:47)
[2016-10-26] MEDS ORDERED: LEVAQUIN 500 MG in NS 100 ML IV ONE (08:00)
[2016-10-26] MEDS ORDERED: ZOFRAN ONE (08:46)
--- NOTE | 2016-10-26 11:19 | Diag Imaging Result Doc PS360 ---
EXAM: OPERATIVE CHOLANGIOGRAM INDICATION: GALLBLADDER DISEASE TECHNIQUE: COMPARISON: None. FINDINGS: Two spot fluoroscopic views of the opacified common bile duct were provided, which were performed by Dr. Bryant Mccabe during cholecystectomy. The common bile duct appears to be grossly normal in course and caliber. There is no discrete filling defect or stricture. Contrast is seen flowing normally into the small bowel. IMPRESSION: As above. Please correlate with live fluoroscopic imaging. Electronically signed by Vincenzo Howard 10/26/2016 11:16 AM
[2016-10-26] MEDS: SODIUM CHLORIDE 0.9% INJ PRN (13:20)
[2016-10-26] MEDS: PROTONIX IV SCH (13:20)
[2016-10-26] MEDS: CLARITIN PO SCH (13:24)
[2016-10-26] MEDS: MIRALAX PO SCH ×2 (13:24→22:45)
[2016-10-26] MEDS: NEURONTIN PO SCH (13:24)
[2016-10-26] MEDS: CATAPRES PO SCH (13:24)
[2016-10-26] MEDS: LASIX PO SCH (13:24)
[2016-10-26] MEDS: APRESOLINE PO SCH (13:24)
[2016-10-26] MEDS: PATIENT'S OWN MED PO SCH (13:25)
--- NOTE | 2016-10-26 13:27 | PROGRESS NOTE ---
DATE: 10/26/2016 Ms. Quispe had abdominal pain. She has some renal failure with a creatinine of 5.2 and BUN of 48. Potassium is 5.6. She had abdominal surgery, cholecystectomy, by Dr. Mccabe this morning. She has tolerated the procedure well. Her overall condition is unchanged. -9 cc: MD Jony Hill MD
[2016-10-26] MEDS: NORCO-7.5 PO PRN (15:00)
[2016-10-26] MEDS: DULCOLAX PR SCH (22:47)
[2016-10-27] MEDS ORDERED: D50W SYRINGE ONE (00:09)
[2016-10-27] MEDS: HUMULIN R SUBQ SCH ×4 (02:34→16:17)
[2016-10-27] MEDS: CARAFATE LIQUID PO SCH ×3 (02:47→13:52)
[2016-10-27] MEDS: MYCOSTATIN SUSP PO SCH ×4 (02:48→16:40)
[2016-10-27] MEDS: NITROGLYCERIN TOP SCH ×2 (04:34→13:52)
[2016-10-27] MEDS: SYNTHROID PO SCH (06:21)
--- NOTE | 2016-10-27 09:52 | PROGRESS NOTE ---
DATE: 10/27/2016 SUBJECTIVE: The patient says she is a little sore in her abdomen. No nausea or vomiting. She has been able to drink some liquids. OBJECTIVE: Vital Signs: She is afebrile. Vital signs are stable. General: She is alert and oriented x4. No acute distress. Gastrointestinal: Soft, nondistended. Appropriate mild tenderness to palpation. Her incisions are clean, dry, and intact. ASSESSMENT/PLAN: An 81-year-old female postoperative day 1 of laparoscopic cholecystectomy. We will advance her to a diabetic diet. If she tolerates this today, she can be discharged. cc: MD Jony Vazquez MD
[2016-10-27] MEDS: LASIX PO SCH (09:53)
[2016-10-27] MEDS: MIRALAX PO SCH (09:53)
[2016-10-27] MEDS: APRESOLINE PO SCH (09:53)
[2016-10-27] MEDS: CATAPRES PO SCH (09:53)
[2016-10-27] MEDS: NEURONTIN PO SCH (09:53)
[2016-10-27] MEDS: CLARITIN PO SCH (09:54)
[2016-10-27] MEDS: PATIENT'S OWN MED PO SCH (09:54)
[2016-10-27] MEDS: DILAUDID IV PRN (10:19)
[2016-10-27] MEDS: SODIUM CHLORIDE 0.9% INJ PRN (13:52)
[2016-10-27] MEDS: PROTONIX IV SCH (13:52)
[2016-10-27 14:50] VITALS: BP 151/63
--- NOTE | 2016-10-27 16:38 | PROGRESS NOTE ---
DATE: 10/27/2016 Ms. Quispe vital signs are stable. Blood pressure is still a little high, it is 176/62. Blood sugar was 130. Overall condition is unchanged. She had cholecystectomy done yesterday. She is taking liquids today. -0 cc: MD Jony Hill MD
[2016-10-27] MEDS: NORCO-7.5 PO PRN (16:59)
--- NOTE | 2016-10-29 08:19 | DISCHARGE SUMMARY ---
ADMISSION DATE: 10/20/2016 DISCHARGE DATE: 10/27/2016 DISCHARGING DIAGNOSIS: Intractable nausea vomiting due to acalculous cholecystitis. SECONDARY DIAGNOSES: 1. End-stage kidney disease on hemodialysis. 2. Type 2 diabetes. 3. Hypertension. 4. Hypothyroidism. 5. 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 6. Peripheral vascular disease. 7. Status post right above-knee amputation. 8. Status post fem/pop bypass surgery on the left leg. 9. Vitamin D deficiency. CONSULTS: 1. Dr. Aguayo for hemodialysis. 2. Dr. Mccabe. 3. Dr. Shipman. PROCEDURES: 1. Laparoscopic cholecystectomy. 2. EGD. Findings are Candidal esophagitis, hiatal hernia. No ulcer disease noted. RADIOLOGY PROCEDURES: 1. HIDA scan: Positive EF 27%. 2. Ultrasound of the abdomen: Negative. BRIEF HISTORY: Please see the H and P that was done by Dr. Collier on 10/19/2016. In brief, she is an 81-year-old pleasant, female who was admitted to the hospital with abdominal pain, intractable nausea, vomiting. Pain is associated with eating. Mostly in the epigastric area. HOSPITAL COURSE: She was given symptomatic treatment for nausea and pain. Throughout the hospital, she was given inpatient hemodialysis as needed. She had ultrasound of the abdomen, which is negative. Since the pain is in epigastric area, I requested Dr. Shipman, who did EGD with candidal esophagitis and no ulcer disease noted. Despite continuous severe abdominal pain during dialysis, HIDA scan was positive for acalculous cholecystitis. The patient was evaluated by Dr. Bryant Mccabe. He did a laparoscopic cholecystectomy on Friday. On the following day, the patient's symptoms were much improved and was discharged home in a stable condition by Dr. Mccabe as well as Dr. Rocha. Rest of the hospital course was uneventful. LABORATORY DATA: At the time of discharge, sodium 134, potassium 5.6, chloride 90, BUN 48, creatinine 5.2 and CBC with white cell count 8.2, hematocrit 40, and platelets 357,000. DISCHARGE MEDICATIONS: Simvastatin 30 mg daily. Prilosec 40 daily. Synthroid 50 mcg daily. Hydralazine 50 daily. Lasix 80 in the morning. Plavix 75 daily. Insulin Apidra 15 units as directed. Clonidine 0.3 mg daily. Folic acid, B complex 1 tablet daily. Gabapentin 300 daily. Meraux for p.r.n. pain. MiraLAX as needed. Also, continue on Prilosec 20 mg daily. The patient was given nystatin for candidal esophagitis. Norvasc 10 mg daily. Vitamin D 50,000 once a week. FOLLOWUP: Follow up in my office next week. cc: MD Gurvinder Phillips MD Jason R. Seale, MD Manish Arora, MD
--- NOTE | 2016-10-29 11:07 | OPERATIVE NOTE ---
PROCEDURE DATE: 10/26/2016 PREOPERATIVE DIAGNOSIS: Biliary dyskinesia. POSTOPERATIVE DIAGNOSIS: Biliary dyskinesia. PROCEDURE: Laparoscopic cholecystectomy with operative cholangiogram. SURGEON: Bryant Mccabe MD. ANESTHESIA: General. ESTIMATED BLOOD LOSS: 10 mL. COMPLICATIONS: None apparent. SPECIMENS: Gallbladder. FINDINGS: The gallbladder was moderately distended and appeared to be mildly chronically inflamed. The cholangiogram revealed normal proximal hepatic radicles as well as normal distal common bile duct. The contrast flowed into the duodenum. There were no filling defects or stenoses. TECHNIQUE: She was brought to the operating room and placed supine on the table. General anesthesia was induced. She was prepped and draped in the usual sterile fashion. 0.25% Marcaine with epinephrine was used to anesthetize our incisions. An 11 mm incision was made above the umbilicus. The fascia was exposed and incised sharply. Entry into the peritoneal cavity was obtained under direct vision with the Optiview device. Pneumoperitoneum was established. The camera was inserted. There is no evidence of injury to underlying structures. She was placed in reverse Trendelenburg and left rotation. Three 5 mm incision and ports were placed in the epigastric and right upper quadrant below the costal margin under direct vision. The dome of the gallbladder was grasped by the therapeutic recreation assistant and lifted up superiorly. Adhesions were taken down off of the wall of the gallbladder bluntly and with scissors. The triangle of Calot was dissected out with the [place] forceps until the critical view was obtained. The gallbladder liver junction was seen. There were only 2 structures entering the gallbladder, the cystic duct and cystic artery. A clip was placed on the distal cystic duct. A ductotomy was made proximal to this with scissors. A 14-gauge Angiocath was brought in through the right upper quadrant. The Taut cholangiogram catheter was passed through this into the cystic duct and held in place with a clip. The cholangiogram was performed with findings as noted above. The clip, catheter, and Angiocath were then removed. Two clips were placed on the proximal cystic duct. It was divided distal to these 2 with scissors. The cystic artery was clipped proximally and distally and incised in between with scissors. The gallbladder was taken off the liver bed using hook cautery, obtaining hemostasis along the way. After it was removed, we inspected the dissection area. There were no signs of any bleeding or bile leakage. The gallbladder was brought out through the umbilical port site under direct vision. The abdomen was desufflated. The ports were removed. The umbilical fascia was closed with a [id number] 0 Vicryl. The skin was closed with running 4-0 subcuticular Monocryl and Steri-Strips. There are no apparent complications. She was awakened in stable condition and transferred to the recovery room. cc: MD Jony Vazquez MD
== END 2016-10-27 18:04 | disposition home health service (06) ==
LOC: ED 08:49 → INTOOBSV 11:44 → 3N 11:44
PROVIDERS: ADMIT Internal Medicine; ATTEND Internal Medicine